=== PATIENT | male | born 1985 | race Caucasian/White ===

== ENCOUNTER 2017-02-09 14:16 | Emergency (ER) ==
[2017-02-09 14:22] VITALS: BP 126/83; TEMP 96.3; BMI 25.5
--- NOTE | 2017-02-09 17:04 | US ---
EXAM: Testicular ultrasound HISTORY: Testicular pain for several months COMPARISON: None TECHNIQUE: Sonographic and Doppler evaluation of the testicles were performed. FINDINGS: The right testicle measures 3.9 x 2.5 x 2.8 cm. The epididymis is normal in appearance. There is a severe varicocele with small hydrocele. There is normal color Doppler flow without sign s of torsion. The left testicle measures 3.9 x 2.4 x 2.5 cm. The epididymis is normal in appearance. There is a severe varicocele with small hydrocele. There is normal color Doppler flow without signs of torsion . IMPRESSION: Bilateral large varicoceles and small hydroceles.
[2017-02-09 17:07] LABS: BASOPHILS % (AUTO) 0.4 % (0.0-3.0); EOSINOPHILS # (AUTO) 0.2 K/ul (0.0-0.7); EOSINOPHILS % (AUTO) 1.8 % (0.0-7.0); HEMATOCRIT 45.6 % (42.0-52.0); HEMOGLOBIN 15.4 g/dl (14.0-18.0); IMMATURE GRANULOCYTE % (AUTO) 0.1 % (0.0-5.0); LYMPHOCYTES # (AUTO) 3.5 K/uL (0.60-3.4); LYMPHOCYTES % (AUTO) 42.8 (10.0-50.0); MEAN CORPUSCULAR HEMOGLOBIN 30.3 pg (27.0-31.0); MEAN CORPUSCULAR HGB CONC 33.8 (31.8-35.4); MEAN CORPUSCULAR VOLUME 89.6 fl (80.0-94.0); MONOCYTES # (AUTO) 0.5 K/uL (0.4-2.0); MONOCYTES % (AUTO) 5.8 (0-10); NEUTROPHILS # (AUTO) 4.1 K/ul (2.0-6.9); NEUTROPHILS % (AUTO) 49.1; PLATELET COUNT 291 10^3/uL (140-440); RED BLOOD COUNT 5.09 10^6/ul (4.70-6.10); WHITE BLOOD COUNT 8.27 K/ul (4.2-10.2)
[2017-02-09 17:09] LABS: ADD URINE MICROSCOPIC YES; BILIRUBIN,URINE Negative (NEGATIVE); KETONES,URINE Negative (NEGATIVE); LEUKOCYTE ESTERASE ,URINE Negative (NEGATIVE); NITRITE,URINE Negative (NEGATIVE); PROTEIN,URINE Negative (NEGATIVE); URINE, BLOOD 1+ (NEGATIVE)
--- NOTE | 2017-02-09 17:15 | CT ---
EXAM: Noncontrast CT of the abdomen and pelvis. HISTORY: Abdominal pain. COMPARISON: 04/17/2013 TECHNIQUE: Contiguous axial images at 3 mm intervals were obtained from lung bases through the pelv is. No contrast was given. Coronal reformats were reviewed. FINDINGS: The study is limited without contrast. CHEST: The lung bases show no lobar consolidation or effusion. The heart size is within normal [place] its. ABDOMEN: Evaluation of the soft tissue organs is limited without contrast. LIVER: Noncontrast images of the liver show no solid mass lesion or intrahepatic ductal dilatation. BILIARY: The gallbladder is normally distended. No gallstones are noted. No pericholecystic fluid or inflammation. The common bile duct is normal. SPLEEN: The spleen is unremarkable. PANCREAS: The pancreas shows no mass lesion or peripancreatic inflammation. ADRENAL GLANDS: The adrenal glands are normal. RENAL: There is mild left hydronephrosis and hydroureter secondary to a 3.7 mL 4.7 mm calcification in the distal left ureter at the ureteral vesicle junction. No other ureteral stones are identifie d. No other renal stones are seen. No solid mass lesions are identified. RETROPERITONEUM: The aorta is unopacified. No aneurysm is identified. No aortic calcifications ar e seen. There is no retroperitoneal or mesenteric adenopathy. BOWEL: The bowel is unopacified. There is no obstruction or inflammatory change. There is no free fluid or free air. No significant inflammatory changes are seen. The appendix is identified an d is normal. PELVIS: BLADDER: The bladder is not well distended which limits evaluation.. GENITOURINARY STRUCTURES: The prostate is unremarkable. OSSEOUS STRUCTURES: The osseous structures are normal for age. IMPRESSION 1. Mild left hydronephrosis and hydroureter secondary to a 3.7 x 4.7 mm calcification in the distal left ureter at the ureteral vesicle junction. 2. The appendix is normal.
[2017-02-09 17:25] LABS: ALBUMIN 4.1 g/dL (3.4-5.0); ALBUMIN/GLOBULIN RATIO 1.24; ANION GAP 9.1; BILIRUBIN,TOTAL 0.33 mg/dL (0.00-1.20); BUN/CREATININE RATIO 11.49; CALCIUM 9.2 mg/dL (8.2-10.2); CREATININE 0.87 mg/dL (0.60-1.10); POTASSIUM 4.1 mmol/L (3.5-5.1); TOTAL PROTEIN 7.4 g/dL (6.4-8.2)
--- NOTE | 2017-02-09 17:27 | ED.PDOC ---
General ED Provider: Dr. LUCIO ANDRADE Chief Complaint: Urinary Problem Stated Complaint: SCROTAL PAIN, FLANK PAIN Time Seen by Physician: 14:33 (NEGATIVE TRAUMA THIS IS A CHRONIC ISSUE ) Mode of Arrival: Walk-In Information Source: Patient Exam Limitations: No limitations Nursing and Triage Documentation Reviewed and Agree: Yes Complaint Exam - Complaint/Exam Patient Complains of: Reports: Scrotal pain, Dysuria Onset/Duration: CHRONIC Symptoms Are: Still present Timing: Intermittent Initial Severity: Mild Current Severity: Mild Location of Pain: Reports: Left, Flank Character: Reports: Dull Aggravating: Reports: Straining Alleviating: Reports: Scrotal elevation Associated Signs and Symptoms: Reports: Dysuria. Denies: Diaphoresis, Back pain , Fever, Hematuria, Constipation, Blood in stool, Rectal pain, Appetite change, Nausea, Vomiting, Penile swelling, Penile discharge, Decreased urine output, Increased urine frequency, Increased thirst, Decreased activity, Lethargy, Scrotal pain, Scrotal swelling, Abdominal Pain Testicular Torsion Risk Factors: Reports: None Surgical Obstruction Risk Factors: Reports: None Related Surgical History: Reports: None Abdominal Findings: Present: None Genitalia Exam: Present: Normal findings Differential Diagnoses: UTI, Ureteral Calculi Review of Systems - Review Of Systems Constitutional: Reports: No symptoms Eyes: Reports: No symptoms Ears, Nose, Mouth, Throat: Reports: No symptoms Respiratory: Reports: No symptoms Cardiac: Reports: No symptoms GI: Reports: No symptoms : Reports: Dysuria, Flank pain, Urgency Musculoskeletal: Reports: No symptoms Skin: Reports: No symptoms Neurological: Reports: No symptoms Endocrine: Reports: No symptoms Hematologic/Lymphatic: Reports: No symptoms All Other Systems: Reviewed and Negative Past Medical History - Past Medical History Previously Healthy: Yes Endocrine: Reports: None Cardiovascular: Reports: None Respiratory: Reports: None Hematological: Reports: None Gastrointestinal: Reports: None Genitourinary: Reports: None Neuro/Psych: Reports: None Musculoskeletal: Reports: None Cancer: Reports: None - Surgical History General Surgical History: Reports: None - Family History Family History: Reports: None - Social History Smoking Status: Heavy tobacco smoker Hx Substance Use: No Alcohol Screening: None Physical Exam - Physical Exam Appearance: Well-appearing, No pain distress, Well-nourished Eyes: BALWINDER, EOMI, Conjunctiva clear ENT: Ears normal, Nose normal, Oropharynx normal Respiratory: Airway patent, Breath sounds clear, Breath sounds equal, Respirations nonlabored Cardiovascular: RRR, Pulses normal, No rub, No murmur GI/: Soft, Nontender, No masses, Bowel sounds normal, No Organomegaly Musculoskeletal: Normal strength, ROM intact, No edema, No calf tenderness Skin: Warm, Dry, Normal color Neurological: Sensation intact, Motor intact, Reflexes intact, Cranial nerves intact, Alert, Oriented Psychiatric: Affect appropriate, Mood appropriate Interpretation - Radiology Interpretation Radiology Interpretation By: Radiologist Radiology Results: Positive (RENAL STONE , VARICOELE) Critical Care Note - Critical Care Note Total Time (mins): 0 Course - Course Hematology/Chemistry: 02/09/17 16:56 Orders, Labs, Meds: Lab Review 02/09/17 02/09/17 16:10 16:56 WBC 8.27 RBC 5.09 Hgb 15.4 Hct 45.6 MCV 89.6 MCH 30.3 MCHC 33.8 RDW Coeff of April 12.1 Plt Count 291 Immature Gran % (Auto) 0.1 Neut % (Auto) 49.1 Lymph % (Auto) 42.8 [place] % (Auto) 5.8 Eos % (Auto) 1.8 Baso % (Auto) 0.4 Immature Gran # (Auto) 0.0 Neut # 4.1 Lymph # 3.5 H Crisp # 0.5 Eos # 0.2 Baso # 0.0 Urine Color Yellow Urine Clarity Clear Urine pH 7.0 Ur Specific [place] 1.010 Urine Protein Negative Urine Glucose (UA) Negative Urine Ketones Negative Urine Blood 1+ Urine Nitrite Negative Urine Bilirubin Negative Urine Urobilinogen 0.2 Ur Leukocyte Esterase Negative Urine Microscopic RBC 5-10 Ur Squamous Epith Cells 0-2 Orders Category Date Time Status CBC W/ AUTO DIFF Stat LAB 02/09/17 16:56 Completed COMPREHENSIVE METABOLIC PANEL Stat LAB 02/09/17 16:56 Received URINALYSIS C & S IF INDICATED Stat LAB 02/09/17 16:[address] ABD/PEL WO RENAL STONE PROT Stat RADS 02/09/17 16:33 Completed ULTRASOUND SCROTUM [U/S SCROTUM] Stat RADS 02/09/17 16:33 Completed Vital Signs: Temp Pulse Resp BP Pulse Ox 02/09/17 14:17 96.3 F L 93 H 20 126/83 98 Departure - Departure Time of Disposition: 18:00 Disposition: HOME SELF-CARE Discharge Problem: Urinary symptoms, Varicocele present on ultrasound of scrotum, Renal stone Hydrocele Qualifiers: Hydrocele type: unspecified Qualifier Code: (N43.3) Hydrocele, unspecified Instructions: Kidney Stones (ED), Renal Colic (ED), Testicle Pain (ED), Flank Pain (ED), Varicocele (ED) Condition: Good Pt referred to PMD for follow-up: No Additional Instructions: Please call your Family Physician as soon as possible to schedule a follow-up appointment. Allergies/Adverse Reactions: Allergies No Known Allergies Allergy (Unverified 02/09/17 14:24) Home Medications: Ambulatory Orders 1 [No Reported Medications] 02/09/17
== END 2017-02-09 18:01 | disposition home or self-care (01) ==
LOC: ED 14:16
DX: N43.3 Hydrocele, unspecified (principal); N20.0 Calculus of kidney; R30.0 Dysuria; F17.210 Nicotine dependence, cigarettes, uncomplicated
CPT/HCPCS: 36415; 74176; 80053; 81001; 85025; 99283

== ENCOUNTER 2018-05-30 11:02 | Emergency (ER) ==
[2018-05-30 11:08] VITALS: BP 145/96; TEMP 97.1; BMI 22.7
--- NOTE | 2018-05-30 11:31 | ED.PDOC ---
General ED Provider: Dr. JORGE LILLY Chief Complaint: Kidney Stone Stated Complaint: Pain in LT FLANK AND LLQ ABDOMEN. Initial onset 4 weeks. Discomfort persistent. Feels aching pain from abdomen into Lt> Rt Groin with voiding. Has known past hx of renal stones. Pain interfering with his ability to work. Time Seen by Physician: 11:15 Mode of Arrival: Walk-In Information Source: Patient Exam Limitations: No limitations Nursing and Triage Documentation Reviewed and Agree: Yes Does patient meet sepsis criteria?: No System Inflammatory Response Syndrome: Not Applicable Sepsis Protocol: For patient's 13 years and over: Temp is 96.8 and below OR 101 and greater Pulse >90 BPM Resp >20/minute Acutely Altered Mental Status Are patient's symptoms suggestive of a new infection, such as: -Pneumonia -Skin, Soft Tissue -Endocarditis -UTI -Bone, Joint Infection -Implantable Device -Acute Abdominal Infection -Wound Infection -Meningitis -Blood Stream Catheter Infection -Unknown Complaint Exam - Complaint/Exam Patient Complains of: Reports: Groin pain (Lt flank and LLQ abdominal pain into groin) Symptoms Are: Still present Timing: Constant Initial Severity: Mild Current Severity: Moderate Location of Pain: Reports: Left, Flank, Groin Character: Reports: Colicky, Burning, Constant pressure Aggravating: Reports: Voiding Alleviating: Reports: None Associated Signs and Symptoms: Reports: Back pain, Dysuria, Decreased urine output, Decreased activity Related History: Reports: Similar episode Testicular Torsion Risk Factors: Reports: None Surgical Obstruction Risk Factors: Reports: None Related Surgical History: Reports: None Abdominal Findings: Present: CVA Tenderness, Other (Pain/guarding LLQ) Differential Diagnoses: Ureteral Calculi Review of Systems - Review Of Systems Constitutional: Reports: No symptoms Eyes: Reports: No symptoms Ears, Nose, Mouth, Throat: Reports: No symptoms Respiratory: Reports: No symptoms Cardiac: Reports: No symptoms GI: Reports: No symptoms : Reports: Dysuria, Flank pain, Pain Musculoskeletal: Reports: No symptoms Skin: Reports: No symptoms Neurological: Reports: No symptoms Endocrine: Reports: No symptoms Hematologic/Lymphatic: Reports: No symptoms All Other Systems: Reviewed and Negative Past Medical History - Past Medical History Previously Healthy: Yes Endocrine: Reports: None Cardiovascular: Reports: None Respiratory: Reports: None Hematological: Reports: None Gastrointestinal: Reports: None Genitourinary: Reports: Kidney stones Neuro/Psych: Reports: None Musculoskeletal: Reports: None Cancer: Reports: None - Surgical History General Surgical History: Reports: None - Family History Family History: Reports: None - Social History Smoking Status: Current every day smoker, Heavy tobacco smoker Hx Substance Use: No Alcohol Screening: None Physical Exam - Physical Exam Appearance: Well-appearing, Ill-appearing, No pain distress, Well-nourished Ill-appearing: Mild Pain Distress: Moderate Eyes: BALWINDER, EOMI, Conjunctiva clear ENT: Ears normal, Nose normal, Oropharynx normal Respiratory: Airway patent, Breath sounds clear, Breath sounds equal, Respirations nonlabored Cardiovascular: RRR, Pulses normal, No rub, No murmur GI/: Soft, No masses, Bowel sounds normal, No Organomegaly, Tender (lt flank and LLQ), Mass Musculoskeletal: Normal strength, ROM intact, No edema, No calf tenderness Skin: Warm, Dry, Normal color Neurological: Sensation intact, Motor intact, Reflexes intact, Cranial nerves intact, Alert, Oriented Psychiatric: Affect appropriate, Mood appropriate Interpretation - Radiology Interpretation Radiology Interpretation By: Radiologist Exam Interpreted: Other (US SCrotum-Varicocele) Critical Care Note - Critical Care Note Total Time (mins): 0 Course - Course Hematology/Chemistry: 05/30/18 11:50 05/30/18 11:50 Orders, Labs, Meds: Lab Review 05/30/18 05/30/18 05/30/18 11:50 11:50 12:06 WBC 7.05 RBC 4.46 L Hgb 13.5 L Hct 39.7 L MCV 89.0 MCH 30.3 MCHC 34.0 RDW Coeff of April 11.9 Plt Count 225 Immature Gran % (Auto) 0.1 Neut % (Auto) 49.7 Lymph % (Auto) 41.0 [place] % (Auto) 7.2 Eos % (Auto) 1.7 Baso % (Auto) 0.3 Immature Gran # (Auto) 0.0 Neut # (Auto) 3.5 Lymph # (Auto) 2.9 [place] # (Auto) 0.5 Eos # (Auto) 0.1 Baso # (Auto) 0.0 Sodium 137 Potassium 4.3 Chloride 106 Carbon Dioxide 24 Anion Gap 11.3 BUN 14 Creatinine 0.84 Estimated GFR (MDRD) 105.00 BUN/Creatinine Ratio 16.66 Glucose 102 H Calcium 9.3 Total Bilirubin 0.9 AST 16 ALT 28 Alkaline Phosphatase 61 Total Protein 7.1 Albumin 4.0 Globulin 3.1 Albumin/Globulin Ratio 1.29 Urine Color Urine Clarity Urine pH Ur Specific [place] Urine Protein Urine Glucose (UA) Urine Ketones Urine Blood Urine Nitrite Urine Bilirubin Urine Urobilinogen Ur Leukocyte Esterase Urine Opiates Screen Negative Ur Oxycodone Screen Positive Urine Methadone Screen Negative Ur Propoxyphene Screen Negative Ur Barbiturates Screen Negative U Tricyclic Antidepress Negative Ur Phencyclidine Scrn Negative Ur Amphetamine Screen Negative U Methamphetamines Scrn Negative U Benzodiazepines Scrn Negative Urine Cocaine Screen Negative U Cannabinoids Screen Positive 05/30/18 12:06 WBC RBC Hgb Hct MCV MCH MCHC RDW Coeff of April Plt Count Immature Gran % (Auto) Neut % (Auto) Lymph % (Auto) [place] % (Auto) Eos % (Auto) Baso % (Auto) Immature Gran # (Auto) Neut # (Auto) Lymph # (Auto) [place] # (Auto) Eos # (Auto) Baso # (Auto) Sodium Potassium Chloride Carbon Dioxide Anion Gap BUN Creatinine Estimated GFR (MDRD) BUN/Creatinine Ratio Glucose Calcium Total Bilirubin AST ALT Alkaline Phosphatase Total Protein Albumin Globulin Albumin/Globulin Ratio Urine Color Yellow Urine Clarity Clear Urine pH 7.0 Ur Specific [place] 1.010 Urine Protein Negative Urine Glucose (UA) Negative Urine Ketones Negative Urine Blood Negative Urine Nitrite Negative Urine Bilirubin Negative Urine Urobilinogen 0.2 Ur Leukocyte Esterase Negative Urine Opiates Screen Ur Oxycodone Screen Urine Methadone Screen Ur Propoxyphene Screen Ur Barbiturates Screen U Tricyclic Antidepress Ur Phencyclidine Scrn Ur Amphetamine Screen U Methamphetamines Scrn U Benzodiazepines Scrn Urine Cocaine Screen U Cannabinoids Screen Orders Category Date Time Status ED STRAIN URINE .ONCE EMERGENCY 05/30/18 11:38 Active CBC W/ AUTO DIFF Stat LAB 05/30/18 11:50 Completed CMP [COMPREHENSIVE METABOLIC PANEL] Stat LAB 05/30/18 11:50 Completed UA [URINALYSIS C & S IF INDICATED] Stat LAB 05/30/18 12:06 Completed URINE DRUG SCREEN (RAPID FOR ED) [DRUG SCREEN, URINE, LAB 05/30/18 12:06 Completed RAPID] Stat CT ABD/PEL WO RENAL STONE PROT Stat RADS 05/30/18 11:38 Completed LUMBAR SPINE, 2 OR 3 VIEWS Stat RADS 05/30/18 11:39 Completed ULTRASOUND SCROTUM [U/S SCROTUM] Stat RADS 05/30/18 12:37 Completed Vital Signs: Temp Pulse Resp BP Pulse Ox 05/30/18 11:04 97.1 F L 81 16 145/96 H 99 Departure - Departure Time of Disposition: 14:10 Disposition: HOME SELF-CARE Discharge Problem: Scrotal pain, Varicocele present on ultrasound of scrotum Instructions: Varicocele (ED) Condition: Good Pt referred to PMD for follow-up: Yes (1 WK) IPMP verified?: No Prescriptions: Hydrocodone Bit/Acetaminophen [[place] 7.5-325] 1 each PO Q6HR PRN #10 tablet PRN Reason: Severe Scrotal Pain Ibuprofen 600 mg PO Q6HR PRN #40 tablet PRN Reason: Groin and scrotal pain Allergies/Adverse Reactions: Allergies No Known Allergies Allergy (Verified 05/30/18 11:10) Home Medications: Ambulatory Orders Hydrocodone Bit/Acetaminophen [[place] 7.5-325] 1 each PO Q6HR PRN #10 tablet 11/05 Ibuprofen 600 mg PO Q6HR PRN #40 tablet 05/30/18 Disposition Discussed With: Patient Additional Information: Explained to patient results of Ultrasound and necessity of seeking a PCP for Follow up care and referral to Urologist Suggested avoiding Boxer shorts. Wearing athletic supporter. Apply ice pack periodically for relief of discomfort. Rx Meds Carver for severed pain unrelieved by Ibuprofen NEEDS FOLLOW UP PCP AT [facility]
--- NOTE | 2018-05-30 12:11 | DI ---
EXAM: Lumbar spine three view HISTORY: Pain by COMPARISON: 04/17/2013 TECHNIQUE: Three views lumbar spine were performed FINDINGS: Sacroiliac joints intact. Sacral arcuate intact. Vertebral bodies normal height. No fra cture. No subluxation. Intervertebral disc spaces maintained. IMPRESSION: Normal examination.
--- NOTE | 2018-05-30 12:23 | CT ---
EXAM: CT ABDOMEN AND PELVIS HISTORY: Left lower quadrant and flank pain TECHNIQUE: CT abdomen and pelvis without intravenous contrast. Images were reconstructed using 3 mm section thickness. Reformations were prepared. COMPARISON: 02/09/2017 FINDINGS: There is a punctate calcification in the left kidney consistent with nephrolithiasis. Neither kidney has evidence of hydronephrosis. There is no perinephric fat stranding. Ureters appear clear. Urin fran bladder is unremarkable. There is no prostate enlargement. Within limits of this unenhanced exam, no focal hepatic or splenic lesions are identified. [place] er, pancreas and adrenal glands appear normal. Normal abdominal aorta. Stomach appears normal. Nor mal appendix. Unremarkable bowel gas pattern. There is no ascites. There is a small fatty umbilica l hernia with a transverse neck of about 1 cm likely of no clinical significance. The bones are with in normal limits. Lung bases are free of acute infiltrate. No pneumoperitoneum. IMPRESSION: Punctate renal calculus on the left. No hydronephrosis or ureteral obstruction.
--- NOTE | 2018-05-30 13:36 | US ---
EXAM: Testicular ultrasound HISTORY: Pain in the scrotum with history of varicocele COMPARISON: Scrotal ultrasound 02/09/2017 TECHNIQUE: Sonographic and Doppler evaluation of the testicles were performed. FINDINGS: The right testicle measures 3.9 x 2.0 x 2.8 cm. This is mixed echogenicity. The epididym is is normal in appearance. There is a severe varicocele. There is a small hernia. There is normal color Doppler flow without signs of torsion. The left testicle measures 3.7 x 2.2 x 2.4 cm. There is mixed echogenicity of the testicle. The epidi dymis is normal in appearance. There is a severe varicocele and small hydrocele. There is normal co barbara Doppler flow without signs of torsion. IMPRESSION: 1. Bilateral severe/large varicoceles which are unchanged. 2. Small left hydrocele and small right hernia.
== END 2018-05-30 14:30 | disposition home or self-care (01) ==
LOC: ED 11:02
DX: I86.1 Scrotal varices (principal); N50.82 Scrotal pain; Z87.442 Personal history of urinary calculi; F17.210 Nicotine dependence, cigarettes, uncomplicated
CPT/HCPCS: 36415; 74176; 80053; 80306; 81001; 85025; 99283